=== PATIENT | male | born 1970 | race Caucasian/White ===

== ENCOUNTER 2019-05-13 13:37 | Emergency (ER) | payer BC ==
[2019-05-13 14:05] VITALS: BP 133/84
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
== END 2019-05-13 14:52 | disposition home or self-care (01) ==
LOC: UCCORT 13:37
DX: S90.01XA Contusion of right ankle, initial encounter (principal); T14.8XXA Other injury of unspecified body region, initial encounter; S93.401A Sprain of unspecified ligament of right ankle, initial encounter; V29.3XXA Motorcycle rider (driver) (passenger) injured in unspecified nontraffic accident, initial encounter; Y92.488 Other paved roadways as the place of occurrence of the external cause
CPT/HCPCS: 99201; G0463